=== PATIENT | male | born 1950 | race Caucasian/White ===

== ENCOUNTER 2017-01-20 12:05 | Emergency (ER) | payer MEDICARE, BC ==
[2017-01-20 12:27] VITALS: BP 159/92
--- NOTE | 2017-01-20 12:33 | EDM.PDOC ---
[id number] 4d RIGHT ANKLE PAIN Time Seen by Provider: 01/20/17 12:31 Source: Reports: Patient, Family History Limitations: Reports: No limitations - History of Present Illness INITIAL COMMENTS - FREE TEXT/NARRATIVE: Pt came down the stairway and twisted the rt ankle. He has pain on the lateral aspect of the rt ankle and foot. Occurred When: this morning Occurred Where: home Method of Injury: fall Severity: moderate Pain/Injury Location: Reports: lower extremity, right Consciousness: Reports: no loss of consciousness Associated Symptoms: Reports: denies other symptoms Allergies/ADRs: Allergies No Known Allergies Allergy (Verified 01/20/17 12:28) Home Medications: Ambulatory Orders Acetaminophen with Codeine [Tylenol with Codeine #3 Tablet] 1 - 2 each PO Q6H [Confirmed 01/20/17] FLUoxetine HCl [Fluoxetine HCl] 1 tab PO DAILY 01/20/17 [Confirmed 01/20/17] Penicillin V Potassium 1 tab PO QID 01/20/17 [Confirmed 01/20/17] Review of Systems - Review of Systems Review Of Systems: See Below Constitutional: Reports: no symptoms Eyes: Reports: no symptoms Ears: Reports: no symptoms Nose: Reports: no symptoms Mouth/Throat: Reports: no symptoms Respiratory: Reports: No Symptoms Cardiovascular: Reports: no symptoms GI/Abdominal: Reports: No symptoms Genitourinary: Reports: no symptoms Musculoskeletal: Reports: no symptoms, other (Pain in the rt foot and ankle) Skin: Reports: no symptoms Neurological: Reports: No Symptoms Trauma Exam - Physical Exam Exam: See Below Text/Narrative:: Pt came down the stairs and twisted his ankle and foot on the rt. Exam Limited By: No limitations General Appearance: Reports: alert, anxious Head: Reports: atraumatic Eyes: bilateral eye: EOMI, normal inspection, PERRL Ears: Reports: normal TMs Nose: Reports: normal inspection Throat/Mouth: Reports: Normal inspection Neck: Reports: non-tender Respiratory Exam: Reports: no respiratory distress Cardiovascular: Reports: regular rate, rhythm GI/Abdominal: Reports: soft, non tender Rectal (Males) Exam: Deferred Extremities: Reports: other ( rt ankle is very tender on the lateral aspect. He i also tender over the lateral aspect of the rt foot. There is mild swelling present. ) Neurologic: Reports: alert Course - Vital Signs Last Recorded V/S: Last Vital Signs Temp 36.7 C 01/20/17 12:25 Pulse 93 01/20/17 12:25 Resp 16 01/20/17 12:25 BP 159/92 H 01/20/17 12:25 Pulse Ox 96 01/20/17 12:25 - Re-Assessments/Exams Free Text/Narrative Re-Assessment/Exam: 01/21/17 07:19 xrays were obtained which did not reveal any fractures present. There was considersble degenerative changes in the xray. Departure - Departure Time of Disposition: 13:18 Disposition: Home, Self-Care 01 Condition: fair Clinical Impression: Sprain of right ankle Instructions: Ankle Sprain, [id number] Referrals: PCP,None [Primary Care Provider] - Forms: ED Department Discharge Care Plan Goals: crutches, stirup splint, elevate , ice foot. Pt has tylenol 3 at home and will use that for pain.
--- NOTE | 2017-01-20 13:04 | CR ---
Ankle Min 3V Rt HISTORY: Pain. COMPARISON: None FINDINGS: Moderate spurring inferior calcaneus. Well-corticated bony density adjacent to the medial malleolus likely represent old trauma. Patient has pain laterally. No acute fracture is seen.
--- NOTE | 2017-01-20 13:07 | CR ---
Foot Comp Min 3V Rt HISTORY: Pain COMPARISON: None FINDINGS: Mild degenerative spurring inferior calcaneus. In the region of pain laterally no fracture or bony destructive process is seen.
== END 2017-01-20 13:51 | disposition home or self-care (01) ==
LOC: JP.ED 12:05
DX: S93.401A Sprain of unspecified ligament of right ankle, initial encounter (principal); Z79.899 Other long term (current) drug therapy; W01.0XXA Fall on same level from slipping, tripping and stumbling without subsequent striking against object, initial encounter
CPT/HCPCS: 73610-26-RT; 73610-RT; 73630-26-RT; 73630-RT; 99283

== ENCOUNTER 2017-07-06 08:46 | Day surgery (SDC) | payer MEDICARE, BC ==
[2017-07-06] MEDS ORDERED: Propofol 200 MG/20 ML SDV ONE (09:05)
[2017-07-06] MEDS ORDERED: fentaNYL 100 MCG/2 ML SDV ONE (09:05)
[2017-07-06] MEDS ORDERED: Midazolam 1 MG/ML 2 ML SDV ONE (09:06)
[2017-07-06] MEDS ORDERED: Lactated Ringers 1,000 ML IV SCH (09:30)
[2017-07-06 11:58] VITALS: BP 109/73
--- NOTE | 2017-07-06 12:09 | OR ---
DATE OF PROCEDURE: 07/06/2017 PREOPERATIVE DIAGNOSIS: Colon cancer screening. POSTOPERATIVE DIAGNOSIS: Two small colon polyps, 20 and 15 cm from the anal verge. PROCEDURE: Colonoscopy to the cecum with biopsy resection of two small colon polyps, 20 and 15 cm from the anal verge. SURGEON: Khurram Freedman MD. ANESTHESIA: IV anesthesia with monitored anesthesia care. INDICATION: This 67-year-old white male is referred for a colonoscopy for colon cancer screening. His last colonoscopic exam he says was done ten years ago. I counseled him for the procedure including risks and alternatives, and he gave his informed consent to proceed. PROCEDURE IN DETAIL: The patient was placed in the left lateral decubitus position. IV anesthesia was administered by the Anesthesia Service. Time-out was held. A rectal exam was performed, which was unremarkable. The flexible video Olympus colonoscope was introduced through his anus, up his rectum, and out his colon all the way to the cecum. Once the cecum was reached, the scope was slowly withdrawn, examining the mucosa throughout. No mucosal abnormalities were noted until we reached 20 cm from the anal verge. Here, a small polyp was seen, which was removed with the biopsy forceps and sent to pathology. At 15 cm, we saw another small polyp, which was removed and sent to pathology. The scope was withdrawn further with no other lesions noted. The scope was retroflexed in the rectum with the distal rectum appearing unremarkable. The scope was straightened and removed. He tolerated the procedure well. Khurram Freedman MD /[id number] [facility] MED[facility] CENTERAdrianne
== END 2017-07-06 12:50 | disposition home or self-care (01) ==
LOC: JP.SDS 08:46
PROVIDERS: ATTEND Surgery
PROC: 0DBE8ZX Excision of Large Intestine, Via Natural or Artificial Opening Endoscopic, Diagnostic (ICD-10-PCS; principal; 2017-07-06)
DX: Z12.11 Encounter for screening for malignant neoplasm of colon (principal); K63.5 Polyp of colon; D12.6 Benign neoplasm of colon, unspecified
CPT/HCPCS: 45380; 88305; J2250; J2704; J3010; J7120

== ENCOUNTER 2020-04-10 06:59 | Emergency (ER) | payer BC, MEDICARE ==
[2020-04-10 07:24] VITALS: BP 119/80; PULSE 74
[2020-04-10] MEDS ORDERED: Codeine/guaiFENesin 100mg-10 MG/5 ML Syrup 10 ML Cup PO ONE (07:47)
--- NOTE | 2020-04-10 07:50 | EDM.PDOC ---
ED HPI GENERAL MEDICAL PROBLEM - General Chief Complaint: ENT Problem Stated Complaint: sore throat headache Time Seen by Provider: 04/10/20 07:40 Source of Information: Reports: Patient, RN Notes Reviewed History Limitations: Reports: No Limitations - History of Present Illness INITIAL COMMENTS - FREE TEXT/NARRATIVE: 69-year-old gentleman presents emergency department today with complaint of upper respiratory type symptomology. He states his been ill for about 4 days has had cough with white sputum production does not feel short of breath has had fevers and chills no nausea vomiting chest pain no GI symptomatologies no known exposures to COVID he has traveled down to the [facility], has had some tick exposures as well Generalized Pain Score (Numeric/FACES): 7 - Related Data Allergies Allergy/AdvReac Type Severity Reaction Status Date / Time No Known Allergies Allergy Verified 04/10/20 07:31 Home Meds: Home Meds FLUoxetine HCl [Fluoxetine HCl] 1 tab PO DAILY 01/20/17 [History] Codeine/guaiFENesin [guaiFENesin-Codeine Syrup] 5 ml PO TID PRN #120 cup 04/10/20 [Rx] Past Medical History HEENT History: Reports: Allergic Rhinitis, Impaired Vision Musculoskeletal History: Reports: Fracture, Osteoarthritis Neurological History: Reports: Concussion Psychiatric History: Reports: Depression Endocrine/Metabolic History: Reports: Obesity/BMI 30+ - Infectious Disease History Infectious Disease History: Reports: Chicken Pox, Measles, Mumps Other Infectious Disease History: Lymes Disease - Past Surgical History HEENT Surgical History: Reports: Tonsillectomy GI Surgical History: Reports: Appendectomy, Colonoscopy Endocrine Surgical History: Reports: None Neurological Surgical History: Reports: None Musculoskeletal Surgical History: Reports: Arthroscopic Knee, Carpal Tunnel Social & Family History - Tobacco Use Smoking Status *Q: Never Smoker - Caffeine Use Caffeine Use: Reports: Coffee - Recreational Drug Use Recreational Drug Use: No ED ROS ENT - Review of Systems Review Of Systems: See Below Constitutional: Reports: Fever, Chills HEENT: Reports: Sinus Problem, Throat Pain Respiratory: Reports: Cough, Sputum Cardiovascular: Reports: No Symptoms GI/Abdominal: Reports: No Symptoms : Reports: No Symptoms Musculoskeletal: Reports: Muscle Pain (Body aches) Skin: Reports: No Symptoms ED EXAM, ENT - Physical Exam Exam: See Below Exam Limited By: No Limitations General Appearance: Alert, WD/WN, No Apparent Distress Eye Exam: Bilateral Eye: Normal Inspection, PERRL Ears: Normal External Exam, Normal Canal, Hearing Grossly Normal, Normal TMs Nose: Normal Inspection, Normal Mucousa, No Blood Mouth/Throat: Normal Inspection, Normal Gums, Normal Lips, Normal Oropharynx, Other (Dentition is poor) Head: Atraumatic, Normocephalic Neck: Normal Inspection, Supple, Non-Tender, Full Range of Motion Respiratory/Chest: No Respiratory Distress, Lungs Clear, Normal Breath Sounds, No Accessory Muscle Use, Chest Non-Tender Cardiovascular: Regular Rate, Rhythm, No Murmur GI/Abdominal: Soft, Non-Tender Course - Vital Signs Last Recorded V/S: Last Vital Signs Temp 95.9 F L 04/10/20 07:30 Pulse 74 04/10/20 07:30 Resp 14 04/10/20 07:30 BP 119/80 04/10/20 07:30 Pulse Ox 96 04/10/20 07:30 - Orders/Labs/Meds Orders: Active Orders 24 hr Category Date Time Status Chest 2V [CR] Stat Exams 04/10/20 07:46 Taken CORONAVIRUS COVID-19, MAGALIE Stat Lab 04/10/20 08:11 Received Isolation [COMM] Routine Oth 04/10/20 07:46 Ordered Labs: Laboratory Tests 04/10/20 04/10/20 04/10/20 Range/Units 07:59 07:59 07:59 WBC 7.5 (4.5-11.0) K/uL RBC 5.27 (4.30-5.90) M/uL Hgb 15.7 H (12.0-15.0) g/dL Hct 48.2 (40.0-54.0) % MCV 92 (80-98) fL MCH 30 (27-31) pg MCHC 33 (32-36) % Plt Count 238 (150-400) K/uL Neut % (Auto) 45 (36-66) % Lymph % (Auto) 40 (24-44) % Marion % (Auto) 11 H (2-6) % Eos % (Auto) 5 H (2-4) % Baso % (Auto) 1 (0-1) % Sodium (140-148) mmol/L Potassium (3.6-5.2) mmol/L Chloride (100-108) mmol/L Carbon Dioxide (21-32) mmol/L Anion Gap (5.0-14.0) mmol/L BUN (7-18) mg/dL Creatinine (0.8-1.3) mg/dL Est Cr Clr Drug Dosing mL/min Estimated GFR (MDRD) (>60) Glucose (74-106) mg/dL Lactic Acid 0.8 (0.4-2.0) mmol/L Calcium (8.5-10.1) mg/dL Total Bilirubin (0.2-1.0) mg/dL AST (15-37) U/L ALT (12-78) U/L Alkaline Phosphatase (46-116) U/L Lactate Dehydrogenase 156 (85-227) U/L C-Reactive Protein 2.85 H (0.0-0.3) mg/dL Total Protein (6.4-8.2) g/dL Albumin (3.4-5.0) g/dL Globulin (2.3-3.5) g/dL Albumin/Globulin Ratio (1.2-2.2) Procalcitonin ng/mL 04/10/20 04/10/20 Range/Units 07:59 07:59 WBC (4.5-11.0) K/uL RBC (4.30-5.90) M/uL Hgb (12.0-15.0) g/dL Hct (40.0-54.0) % MCV (80-98) fL MCH (27-31) pg MCHC (32-36) % Plt Count (150-400) K/uL Neut % (Auto) (36-66) % Lymph % (Auto) (24-44) % Marion % (Auto) (2-6) % Eos % (Auto) (2-4) % Baso % (Auto) (0-1) % Sodium 139 L (140-148) mmol/L Potassium 3.9 (3.6-5.2) mmol/L Chloride 101 (100-108) mmol/L Carbon Dioxide 31 (21-32) mmol/L Anion Gap 10.9 (5.0-14.0) mmol/L BUN 15 (7-18) mg/dL Creatinine 1.1 (0.8-1.3) mg/dL Est Cr Clr Drug Dosing 71.63 mL/min Estimated GFR (MDRD) > 60 (>60) Glucose 97 (74-106) mg/dL Lactic Acid (0.4-2.0) mmol/L Calcium 9.1 (8.5-10.1) mg/dL Total Bilirubin 0.6 (0.2-1.0) mg/dL AST 19 (15-37) U/L ALT 30 (12-78) U/L Alkaline Phosphatase 88 (46-116) U/L Lactate Dehydrogenase (85-227) U/L C-Reactive Protein (0.0-0.3) mg/dL Total Protein 8.0 (6.4-8.2) g/dL Albumin 3.7 (3.4-5.0) g/dL Globulin 4.3 H (2.3-3.5) g/dL Albumin/Globulin Ratio 0.9 L (1.2-2.2) Procalcitonin < 0.05 ng/mL Meds: Medications Discontinued Medications Generic Name Dose Route Start Last Admin Trade Name Freq PRN Reason Stop Dose Admin Guaifenesin/Codeine Phosphate 10 ml 04/10/20 07:47 04/10/20 08:11 Robitussin Ac PO 04/10/20 07:48 10 ml ONETIME ONE Administration Departure - Departure Time of Disposition: 09:28 Disposition: Home, Self-Care 01 Condition: Fair Clinical Impression: Viral syndrome - Discharge Information Prescriptions: Codeine/guaiFENesin [guaiFENesin-Codeine Syrup] 5 ml PO TID PRN #120 cup PRN Reason: Cough Instructions: Viral Respiratory Infection, [id number] Referrals: PCP,None [Primary Care Provider] - Forms: ED Department Discharge Additional Instructions: Continue to use the Robitussin-AC as needed for cough suppression, use Tylenol or Motrin as needed for fevers, please followup with your primary care provider in 3-5 days if not better, please call return to the emergency department with worsening of symptoms. Sepsis Event Note (ED) - Evaluation Sepsis Screening Result: No Definite Risk - Focused Exam Vital Signs: Vital Signs Temp Pulse Resp BP Pulse Ox 04/10/20 07:30 95.9 F L 74 14 119/80 96 04/10/20 07:21 95.9 F L 74 14 119/80 96 - My Orders Last 24 Hours: My Active Orders 04/10/20 07:46 Chest 2V [CR] Stat Isolation [COMM] Routine 04/10/20 08:11 CORONAVIRUS COVID-19, MAGALIE Stat - Assessment/Plan Last 24 Hours: My Active Orders 04/10/20 07:46 Chest 2V [CR] Stat Isolation [COMM] Routine 04/10/20 08:11 CORONAVIRUS COVID-19, MAGALIE Stat Plan: Assessment Acuity = acute Site and laterality = viral syndrome Etiology = unknown Manifestations = cough Location of injury = Home Lab values = I did review films myself I cannot appreciate any acute process, the official read from radiology is pending CBC, CMP, lactic acid, LDH, procalcitonin all within normal limits COVID test is pending Plan He had good relief with Robitussin-AC provided in the emergency department medication 5 mL p.o. 3 times daily as needed 120 mL bottle faxed to [facility], follow-up primary care 3 to 5 days if not better This note was dictated using [employer] voice recognition software please call with any questions on syntax or grammar.
--- NOTE | 2020-04-10 10:13 | CR ---
CHEST: 2 view CLINICAL HISTORY:Cough COMPARISON:None FINDINGS: The heart size, pulmonary vascularity and hilar structures are normal. No infiltrate effusion or pneumothorax is seen. IMPRESSION: No acute cardiopulmonary process.
== END 2020-04-10 09:40 | disposition home or self-care (01) ==
LOC: JP.ED 06:59
DX: B34.9 Viral infection, unspecified (principal); Z20.828 Contact with and (suspected) exposure to other viral communicable diseases; E66.9 Obesity, unspecified; F32.9 Major depressive disorder, single episode, unspecified; Z68.31 Body mass index [BMI] 31.0-31.9, adult; Z79.899 Other long term (current) drug therapy
CPT/HCPCS: 36415; 71046; 80053; 83605; 83615; 84145; 85025; 86140; 87804; 99283; A9270; U0002

== ENCOUNTER 2020-07-22 06:33 | Day surgery (SDC) | payer MEDICARE ==
[2020-07-22] MEDS: Sodium Chloride 0.9% 1,000 ML IV SCH (07:12)
[2020-07-22] MEDS ORDERED: Propofol 200 MG/20 ML SDV ONE (07:19)
[2020-07-22] MEDS ORDERED: Midazolam 1 MG/ML 2 ML SDV ONE (07:19)
[2020-07-22] MEDS ORDERED: fentaNYL 100 MCG/2 ML SDV ONE (07:19)
[2020-07-22 08:41] VITALS: PULSE 65
[2020-07-22 09:16] VITALS: BP 112/40
--- NOTE | 2020-07-22 11:00 | OR ---
DATE OF PROCEDURE: 07/22/2020 SURGEON: Anish Huang MD PROCEDURE: Colonoscopy. FINDINGS: Normal colonoscopy. COMPLICATIONS: None. DEPUTY DIRECTOR OF FINANCE: None. PREOPERATIVE DIAGNOSIS: Screening colonoscopy. POSTOPERATIVE DIAGNOSIS: Screening colonoscopy. RISKS: Risks, benefits, alternatives, and limitations including, but not limited to, infection, bleeding, or perforation were explained to the patient, who wished to proceed. PROCEDURE IN DETAIL: The patient was placed in left lateral decubitus position. Digital rectal exam was performed without abnormality. Scope was introduced and advanced atraumatically to the ileocecal valve. A photo was taken. The scope was brought back through the ascending, transverse, descending colon, and retroflexed. No evidence of old or new blood. No masses. No polyps. No diverticulosis. No colitis. No abnormalities on retroflexion. The patient tolerated the procedure well. Anish Huang MD /[id number]
== END 2020-07-22 09:45 | disposition home or self-care (01) ==
LOC: JP.SDS 06:33
PROVIDERS: ATTEND Surgery
DX: Z12.11 Encounter for screening for malignant neoplasm of colon (principal); Z86.010 Personal history of colon polyps
CPT/HCPCS: G0105; J2250; J2704; J3010; J7030

== ENCOUNTER 2022-04-08 15:41 | Emergency (ER) | payer MEDICARE ==
[2022-04-08 16:00] VITALS: BP 130/73; PULSE 93
[2022-04-08] MEDS ORDERED: Lidocaine 1% with EPINEPHrine 1:100,000 50 ML MDV INFILT ONE (16:09)
[2022-04-08] MEDS ORDERED: Bacitracin Oint 1 GM U/D Packet TOP ONE (16:42)
== END 2022-04-08 17:03 | disposition home or self-care (01) ==
LOC: JP.ED 15:41
DX: S01.01XA Laceration without foreign body of scalp, initial encounter (principal); E66.9 Obesity, unspecified; Z68.31 Body mass index [BMI] 31.0-31.9, adult; W18.09XA Striking against other object with subsequent fall, initial encounter
CPT/HCPCS: 12004; 99281; 99282-25

== ENCOUNTER 2022-08-24 14:59 | Emergency (ER) | payer MEDICARE ==
[2022-08-24 15:10] VITALS: BP 160/90; PULSE 98
[2022-08-24] MEDS ORDERED: Bacitracin Oint 1 GM U/D Packet TOP ONE (15:36)
[2022-08-24] MEDS ORDERED: Lidocaine 1% with EPINEPHrine 1:100,000 50 ML MDV INFILT ONE (15:37)
== END 2022-08-24 16:27 | disposition home or self-care (01) ==
LOC: JP.ED 14:59
DX: S81.812A Laceration without foreign body, left lower leg, initial encounter (principal); E66.9 Obesity, unspecified; Z68.31 Body mass index [BMI] 31.0-31.9, adult; W20.8XXA Other cause of strike by thrown, projected or falling object, initial encounter
CPT/HCPCS: 12034; 99282

== ENCOUNTER 2024-10-14 20:44 | Emergency (ER) | payer MEDICARE ==
[2024-10-14] MEDS: Proparacaine 0.5% Ophth Soln 15 ML Bottle EYELF ONE (20:50)
[2024-10-14 21:39] VITALS: BP 132/81; PULSE 71
== END 2024-10-14 21:35 | disposition home or self-care (01) ==
LOC: JP.ED 20:44
DX: S05.02XA Injury of conjunctiva and corneal abrasion without foreign body, left eye, initial encounter (principal); E66.9 Obesity, unspecified; Z86.16 Personal history of COVID-19; Z90.49 Acquired absence of other specified parts of digestive tract; Z79.899 Other long term (current) drug therapy; Z68.32 Body mass index [BMI] 32.0-32.9, adult; X58.XXXA Exposure to other specified factors, initial encounter
CPT/HCPCS: 99283; A9270